=== PATIENT | female | born 1940 | race Caucasian/White ===

== ENCOUNTER 2016-09-07 19:24 | Outpatient (CLI) | payer MEDICARE | END 2016-09-07 19:25 | disposition critical access hospital (66) | DX: R47.9 Unspecified speech disturbances (principal) | CPT/HCPCS: A0425; A0427 ==

== ENCOUNTER 2016-09-07 19:38 | Emergency (ER) | payer MEDICARE ==
[2016-09-07] MEDS ORDERED: LABETALOL 5 MG/1 ML 20 ML MDV IV STA (19:50)
[2016-09-07] MEDS ORDERED: LABETALOL 20 MG/4 ML SYRINGE IVP ONE (19:50)
== END 2016-09-07 21:00 | disposition short-term general hospital (02) ==
DX: I61.8 Other nontraumatic intracerebral hemorrhage (principal); R47.01 Aphasia; G81.91 Hemiplegia, unspecified affecting right dominant side